=== PATIENT | male | born 1980 | race Caucasian/White ===

== ENCOUNTER 2018-05-25 06:58 | Day surgery (SDC) | payer OTHER ==
[~2018-05-25] VITALS: Ht 167.6 cm; Wt 73.8 kg
[~2018-05-25 06:58] MED LIST: ACET-784 PO; AMPICILLIN SODIUM 1 GM/VIAL ONE; ATOR10TA84 PO; CARB200T6 PO; DOXY100C PO; DSS100 PO; FOLI1 PO; GEMF600T3 PO; GUAI-966 PO; LITH300C3 PO; LORA10TA7 PO; MOM30 PO; MULT-1203 PO; P-EP-31 PO; PSYL575P22 PO; RINGERS SOLUTION,LACTATED 1,000 ML IV ONE; RISP.5 PO; RISP1 PO; RISP2 PO; [UNRECOGNIZED DRUG - OTHER] PO
[2018-05-25] MEDS ORDERED: LIDOCAINE HCL/PF 2% 5 ML VIAL IM ONE (06:59)
[2018-05-25] MEDS ORDERED: METOCLOPRAMIDE HCL 5 MG/ML 2 ML VIAL IVP ONE (06:59)
[2018-05-25] MEDS ORDERED: MIDAZOLAM HCL 2 MG/2 ML VIAL IVP ONE (06:59)
[2018-05-25] MEDS ORDERED: SUCCINYLCHOLINE CHLORIDE 20 MG/ML 10 ML VIAL IVP ONE (06:59)
[2018-05-25] MEDS ORDERED: GLYCOPYRROLATE 0.2 MG/ML VIAL IM ONE (06:59)
[2018-05-25] MEDS ORDERED: DEXAMETHASONE SOD PHOS 4 MG/ML VIAL IVP ONE (06:59)
[2018-05-25] MEDS ORDERED: PROPOFOL 1% 20 ML VIAL IVP ONE (06:59)
[2018-05-25] MEDS ORDERED: PHENYLEPHRINE HCL 1% 15 ML NASAL SPRAY NASAL ONE (06:59)
[2018-05-25] MEDS ORDERED: RINGERS SOLUTION,LACTATED 1,000 ML IV ONE ×2 (07:00→11:00)
[2018-05-25] MEDS ORDERED: AMPICILLIN SODIUM 1 GM/VIAL ONE (07:53)
[2018-05-25] MEDS ORDERED: KETAMINE HCL 50 MG/ML 10 ML VIAL ONE (08:09)
[2018-05-25] MEDS ORDERED: MIDAZOLAM HCL 5 MG/ML VIAL ONE (08:09)
== END 2018-05-25 12:15 | disposition home or self-care (01) ==
LOC: SURGERY 06:58 → EDSEX 08:30 → SURGERY 12:15
PROVIDERS: ATTEND Dentist General Practice
DX: K05.30 Chronic periodontitis, unspecified (principal); E78.5 Hyperlipidemia, unspecified; H54.8 Legal blindness, as defined in USA; F31.9 Bipolar disorder, unspecified; F41.8 Other specified anxiety disorders; F63.81 Intermittent explosive disorder; Z79.891 Long term (current) use of opiate analgesic; Z79.2 Long term (current) use of antibiotics; Z79.899 Other long term (current) drug therapy; Z88.8 Allergy status to other drugs, medicaments and biological substances
CPT/HCPCS: 41899; J0290; J0330; J1100; J2250 ×2; J2704; J2765; J3490 ×3; J7120

== ENCOUNTER 2019-11-15 06:40 | Day surgery (SDC) | payer OTHER, MEDICAID ==
[~2019-11-15] VITALS: Ht 167.6 cm; Wt 170.6 kg
[~2019-11-15 06:40] MED LIST changes: -AMPICILLIN SODIUM 1 GM/VIAL ONE; +CARI3CAP PO; +CHLO4TAB96 PO; -GEMF600T3 PO; +GEMF600T5 PO; +GUAI-1372 PO; +MELA5TAB3 PO; -[UNRECOGNIZED DRUG - OTHER] PO
[2019-11-15] MEDS ORDERED: AMPICILLIN SODIUM 1 GM/VIAL ONE (06:54)
[2019-11-15] MEDS ORDERED: SODIUM CHLORIDE 0.9% 100 ML ONE (06:54)
[2019-11-15 07:15] LABS: BASOPHILS % (AUTO) 0.6 % (0.0-2.0); EOSINOPHILS % (AUTO) 2.4 % (1.0-6.0); HEMATOCRIT 35.9 % (41-53); HEMOGLOBIN 12.5 g/dL (13.5-17.5); LYMPHOCYTES # (AUTO) 1.9 K/uL (1.0-4.8); LYMPHOCYTES % (AUTO) 36.3 % (22.0-44.0); MEAN CORPUSCULAR HEMOGLOBIN 31.7 pg (26.0-34.0); MEAN CORPUSCULAR HGB CONC 34.7 G/dL (31.0-37.0); MEAN CORPUSCULAR VOLUME 91 fL (80-100); MONOCYTES # (AUTO) 0.5 K/uL (0.1-1.0); MONOCYTES % (AUTO) 10.6 % (2.0-9.0); NEUTROPHILS # (AUTO) 2.6 K/uL (1.8-7.7); NEUTROPHILS % (AUTO) 50.1 % (40.0-70.0); PLATELET COUNT (AUTO) 323 K/uL (150-450); RED BLOOD CELL COUNT(AUTO) 3.94 MIL/uL (4.50-5.90); RED CELL DISTRIBUTION WIDTH 12.8 % (11.5-14.5)
[2019-11-15 07:26] LABS: ANION GAP 8 mmol/L (8-16); CALCIUM, TOTAL 9.3 mg/dL (8.8-10.5); CARBON DIOXIDE 26 mmol/L (22-29); CHLORIDE 108 mmol/L (98-107); CREATININE 1.14 mg/dL (0.60-1.30); GLOMERULAR FILTR. RATE CALC > 60 mL/min (>60); GLUCOSE,RANDOM 92 mg/dL (70-110); POTASSIUM 4.2 mmol/L (3.5-5.1); SODIUM SERUM 142 mmol/L (136-145); UREA NITROGEN, BLOOD 20 mg/dL (7-18)
[2019-11-15 07:32] LABS: ALANINE AMINOTRANSFERASE 16 U/L (12-78); ALBUMIN 4.2 g/dL (3.4-5.0); ALKALINE PHOSPHATASE 105 U/L (46-116); ASPARTATE AMINOTRANSFERASE 20 U/L (15-37); BILIRUBIN,TOTAL 0.2 mg/dL (0.1-1.0); INR 1.1 (0.9-1.1); PROTHROMBIN TIME 11.2 SEC (9.4-11.6); TOTAL PROTEIN, SERUM 7.4 g/dL (6.4-8.2)
[2019-11-15] MEDS ORDERED: ROCURONIUM BROMIDE 10 MG/ML 5 ML VIAL IVP ONE (12:00)
[2019-11-15] MEDS ORDERED: PROPOFOL 1% 20 ML VIAL IVP ONE (12:00)
[2019-11-15] MEDS ORDERED: FentaNYL CITRATE-PF 100 MCG/2 ML VIAL IVP ONE (12:00)
[2019-11-15] MEDS ORDERED: LIDOCAINE/PF 2% 5 ML SYRINGE IVP ONE (12:00)
[2019-11-15] MEDS ORDERED: MIDAZOLAM HCL 2 MG/2 ML VIAL IVP ONE (12:00)
== END 2019-11-15 14:05 | disposition home or self-care (01) ==
LOC: SURGERY 06:40
PROVIDERS: ATTEND Dentist General Practice
DX: K02.9 Dental caries, unspecified (principal); K05.5 Other periodontal diseases; E78.5 Hyperlipidemia, unspecified; G40.909 Epilepsy, unspecified, not intractable, without status epilepticus; F41.9 Anxiety disorder, unspecified; K21.9 Gastro-esophageal reflux disease without esophagitis; M81.0 Age-related osteoporosis without current pathological fracture; G80.9 Cerebral palsy, unspecified; Z88.8 Allergy status to other drugs, medicaments and biological substances; Z79.899 Other long term (current) drug therapy; Z79.01 Long term (current) use of anticoagulants
CPT/HCPCS: 36415; 41899; 71045; 80053; 85025; 85610; 85730; 93005; J0290; J2250; J2704; J3010; J3490 ×2; J7050; J7120

== ENCOUNTER 2021-06-04 06:01 | Day surgery (SDC) | payer OTHER, MEDICAID ==
[~2021-06-04] VITALS: Ht 167.6 cm; Wt 70.5 kg
[~2021-06-04 06:01] MED LIST changes: +FOLI-130 PO; -FOLI1 PO; -GEMF600T5 PO; +GEMF600T90 PO; -RISP.5 PO; +RISP0.5T39 PO; -RISP1 PO; +RISP1TAB48 PO; -RISP2 PO; +RISP2TAB45 PO
[2021-06-04] MEDS ORDERED: ONDANSETRON HCL 4 MG/2 ML VIAL IVP ONE (06:02)
[2021-06-04] MEDS ORDERED: PROPOFOL 1% 20 ML VIAL IVP ONE (06:02)
[2021-06-04] MEDS ORDERED: FentaNYL CITRATE PF 100 MCG/2 ML VIAL IVP ONE (06:02)
[2021-06-04] MEDS ORDERED: MIDAZOLAM HCL 2 MG/2 ML VIAL IVP ONE (06:02)
[2021-06-04] MEDS ORDERED: LIDOCAINE/PF 2% 5 ML VIAL IM ONE (06:02)
[2021-06-04 06:34] LABS: COVID AG,FIA SOURCE NASOPHARYNGEAL
[2021-06-04] MEDS ORDERED: AMPICILLIN SODIUM 1 GM/VIAL ONE (07:34)
[2021-06-04] MEDS ORDERED: SODIUM CHLORIDE 0.9% 100 ML ONE (07:39)
[2021-06-04 07:45] LABS: BASOPHILS % (AUTO) 0.7 % (0.0-2.0); HEMATOCRIT 34.7 % (41-53); HEMOGLOBIN 11.8 g/dL (13.5-17.5); LYMPHOCYTES # (AUTO) 1.6 K/uL (1.0-4.8); LYMPHOCYTES % (AUTO) 27.8 % (22.0-44.0); MEAN CORPUSCULAR HEMOGLOBIN 31.4 pg (26.0-34.0); MEAN CORPUSCULAR HGB CONC 33.9 G/dL (31.0-37.0); MEAN CORPUSCULAR VOLUME 93 fL (80-100); MONOCYTES # (AUTO) 0.5 K/uL (0.1-1.0); MONOCYTES % (AUTO) 8.5 % (2.0-9.0); NEUTROPHILS # (AUTO) 3.5 K/uL (1.8-7.7); PLATELET COUNT (AUTO) 343 K/uL (150-450); RED BLOOD CELL COUNT(AUTO) 3.75 MIL/uL (4.50-5.90); RED CELL DISTRIBUTION WIDTH 12.8 % (11.5-14.5)
[2021-06-04 07:52] LABS: ANION GAP 8 mmol/L (8-16); CALCIUM, TOTAL 9.2 mg/dL (8.8-10.5); CARBON DIOXIDE 26 mmol/L (22-29); CHLORIDE 108 mmol/L (98-107); CREATININE 0.94 mg/dL (0.60-1.30); GLOMERULAR FILTR. RATE CALC > 60 mL/min (>60); GLUCOSE,RANDOM 98 mg/dL (70-110); SODIUM SERUM 142 mmol/L (136-145); UREA NITROGEN, BLOOD 18 mg/dL (7-18)
[2021-06-04 07:56] LABS: PROTHROMBIN TIME 10.9 SEC (9.4-11.6)
[2021-06-04 07:58] LABS: ALANINE AMINOTRANSFERASE 22 U/L (12-78); ALKALINE PHOSPHATASE 106 U/L (46-116); ASPARTATE AMINOTRANSFERASE 21 U/L (15-37); BILIRUBIN,TOTAL 0.2 mg/dL (0.1-1.0); TOTAL PROTEIN, SERUM 7.4 g/dL (6.4-8.2)
== END 2021-06-04 12:30 | disposition home or self-care (01) ==
LOC: SURGERY 06:01
PROVIDERS: ATTEND Dentist General Practice
DX: K02.9 Dental caries, unspecified (principal); K05.6 Periodontal disease, unspecified; E78.5 Hyperlipidemia, unspecified; G40.909 Epilepsy, unspecified, not intractable, without status epilepticus; I10 Essential (primary) hypertension; D64.9 Anemia, unspecified; F31.9 Bipolar disorder, unspecified; F41.9 Anxiety disorder, unspecified; K21.9 Gastro-esophageal reflux disease without esophagitis; K59.00 Constipation, unspecified; Z79.899 Other long term (current) drug therapy; Z98.890 Other specified postprocedural states; Z88.8 Allergy status to other drugs, medicaments and biological substances; E78.00 Pure hypercholesterolemia, unspecified; Z79.01 Long term (current) use of anticoagulants
CPT/HCPCS: 36415; 41899; 71045; 80053; 85025; 85610; 85730; 87426; 93005; C9803; J0290; J2250; J2405; J2704; J3010; J3490; J7050; J7120

== ENCOUNTER → 2022-11-25 | Day surgery (SDC) | payer OTHER, MEDICAID ==
[~2022-11-25] VITALS: Ht 167.6 cm; Wt 70.5 kg
[~2022-11-25] MED LIST changes: +AMPICILLIN SODIUM 2 GM/NS 100 ML IV ONE; +ATOR10TA PO; -ATOR10TA84 PO; +BUPIVACAINE 0.25%/EPI 1:200,000/PF 10 ML VIAL ONE; +BUPIVACAINE HCL/PF 0.25% 30 ML VIAL ONE; +FentaNYL CITRATE PF 100 MCG/2 ML VIAL IVP ONE; +GEMF-77 PO; -GEMF600T90 PO; +LIDOCAINE/PF 2% 5 ML VIAL IM ONE; +MAGN-169 PO; -MELA5TAB3 PO; +MELA5TAB40 PO; +MIDAZOLAM HCL 2 MG/2 ML VIAL IVP ONE; -MOM30 PO; +ONDANSETRON HCL 4 MG/2 ML VIAL IVP ONE; -P-EP-31 PO; +PROPOFOL 1% 20 ML VIAL IVP ONE; +ROCURONIUM BROMIDE 10 MG/ML 5 ML VIAL IVP ONE; +SODIUM CHLORIDE 0.9% 1,000 ML IV ONE; +TRIP1TAB14 PO
[2022-11-25 07:22] LABS: COVID AG,FIA SOURCE NASAL SWAB
[2022-11-25 07:33] LABS: BASOPHILS % (AUTO) 0.8 % (0.0-2.0); EOSINOPHILS % (AUTO) 2.9 % (1.0-6.0); HEMOGLOBIN 12.3 g/dL (13.5-17.5); LYMPHOCYTES # (AUTO) 1.7 K/uL (1.0-4.8); LYMPHOCYTES % (AUTO) 33.8 % (22.0-44.0); MEAN CORPUSCULAR HEMOGLOBIN 31.7 pg (26.0-34.0); MEAN CORPUSCULAR HGB CONC 33.3 G/dL (31.0-37.0); MEAN CORPUSCULAR VOLUME 95 fL (80-100); MONOCYTES # (AUTO) 0.5 K/uL (0.1-1.0); MONOCYTES % (AUTO) 9.4 % (2.0-9.0); NEUTROPHILS # (AUTO) 2.6 K/uL (1.8-7.7); NEUTROPHILS % (AUTO) 53.1 % (40.0-70.0); PLATELET COUNT (AUTO) 320 K/uL (150-450); RED CELL DISTRIBUTION WIDTH 13.1 % (11.5-14.5)
[2022-11-25 07:47] LABS: INR 1.1 (0.9-1.1); PROTHROMBIN TIME 11.2 SEC (9.4-11.6)
[2022-11-25 07:49] LABS: ANION GAP 10 mmol/L (8-16); CALCIUM, TOTAL 9.3 mg/dL (8.8-10.5); CARBON DIOXIDE 25 mmol/L (22-29); CHLORIDE 108 mmol/L (98-107); CREATININE 1.09 mg/dL (0.60-1.30); GLUCOSE,RANDOM 96 mg/dL (70-110); POTASSIUM 3.8 mmol/L (3.5-5.1); SODIUM SERUM 143 mmol/L (136-145); UREA NITROGEN, BLOOD 13 mg/dL (7-18)
[2022-11-25 07:53] LABS: GLOMERULAR FILTR. RATE CALC > 60 mL/min (>60)
[2022-11-25 07:55] LABS: ALANINE AMINOTRANSFERASE 17 U/L (12-78); ALBUMIN 4.1 g/dL (3.4-5.0); ALKALINE PHOSPHATASE 106 U/L (46-116); ASPARTATE AMINOTRANSFERASE 18 U/L (15-37); BILIRUBIN,TOTAL 0.2 mg/dL (0.1-1.0); TOTAL PROTEIN, SERUM 7.5 g/dL (6.4-8.2)
== END | disposition still patient (30) ==
LOC: SURGERY 06:57
PROVIDERS: ATTEND Dentist General Practice
DX: K02.9 Dental caries, unspecified (principal); K05.30 Chronic periodontitis, unspecified; E78.5 Hyperlipidemia, unspecified; F31.9 Bipolar disorder, unspecified; G40.909 Epilepsy, unspecified, not intractable, without status epilepticus; F41.9 Anxiety disorder, unspecified; K21.9 Gastro-esophageal reflux disease without esophagitis; K03.6 Deposits [accretions] on teeth; Z79.01 Long term (current) use of anticoagulants; Z79.899 Other long term (current) drug therapy; Z88.8 Allergy status to other drugs, medicaments and biological substances; K59.00 Constipation, unspecified; E78.00 Pure hypercholesterolemia, unspecified; Z98.890 Other specified postprocedural states
CPT/HCPCS: 41899; 71045; 87426; 80053; 85025; 85610; 85730; 36415; 93005; J0290; J3490 ×3; J2704; J3010; J2250; J2405; C9803

== ENCOUNTER 2025-06-13 06:19 | Day surgery (SDC) | payer OTHER ==
[~2025-06-13] VITALS: Ht 167.6 cm; Wt 60.5 kg
[~2025-06-13 06:19] MED LIST changes: +AMLO-258 PO; -AMPICILLIN SODIUM 2 GM/NS 100 ML IV ONE; +BISA-151 PO; -BUPIVACAINE 0.25%/EPI 1:200,000/PF 10 ML VIAL ONE; -BUPIVACAINE HCL/PF 0.25% 30 ML VIAL ONE; +CALA177S6 TP; +CARB-92 PO; -CARB200T6 PO; -CHLO4TAB96 PO; -DSS100 PO; +FERR325T27 PO; +FEXO-353 PO; -FentaNYL CITRATE PF 100 MCG/2 ML VIAL IVP ONE; +GUAI-1217 PO; -GUAI-1372 PO; -GUAI-966 PO; -LIDOCAINE/PF 2% 5 ML VIAL IM ONE; -LORA10TA7 PO; +LORA2TAB18 PO; -MIDAZOLAM HCL 2 MG/2 ML VIAL IVP ONE; -ONDANSETRON HCL 4 MG/2 ML VIAL IVP ONE; +POLY17PO47 PO; -PROPOFOL 1% 20 ML VIAL IVP ONE; -PSYL575P22 PO; -RINGERS SOLUTION,LACTATED 1,000 ML IV ONE; -RISP0.5T39 PO; +RISP1SOL11 PO; -RISP2TAB45 PO; -ROCURONIUM BROMIDE 10 MG/ML 5 ML VIAL IVP ONE; -SODIUM CHLORIDE 0.9% 1,000 ML IV ONE; -TRIP1TAB14 PO
[2025-06-13 07:09] LABS: PLATELET COUNT (AUTO) 305 K/uL (150-450); RED BLOOD CELL COUNT(AUTO) 3.64 MIL/uL (4.50-5.90); RED CELL DISTRIBUTION WIDTH 13.8 % (11.5-14.5); WHITE BLOOD COUNT (AUTO) 4.8 K/uL (4.5-11.0)
[2025-06-13 07:21] LABS: CALCIUM, TOTAL 9.5 mg/dL (8.8-10.5); CREATININE 1.18 mg/dL (0.60-1.30); GLOMERULAR FILTR. RATE CALC > 60 mL/min (>60); GLUCOSE,RANDOM 95 mg/dL (70-110); SODIUM SERUM 143 mmol/L (136-145); UREA NITROGEN, BLOOD 21 mg/dL (7-18)
[2025-06-13 07:26] LABS: ASPARTATE AMINOTRANSFERASE 16 U/L (15-37); TOTAL PROTEIN, SERUM 6.9 g/dL (6.4-8.2)
[2025-06-13] MEDS ORDERED: AMPICILLIN SODIUM 2 GM/NS 100 ML IV ONE (07:30)
[2025-06-13] MEDS ORDERED: RINGERS SOLUTION,LACTATED 1,000 ML IV ONE (07:34)
[2025-06-13] MEDS ORDERED: CYAN-42 IM (09:45)
[2025-06-13] MEDS ORDERED: DOXY-354 PO (09:45)
[2025-06-13] MEDS ORDERED: ATOR20TA PO (09:45)
[2025-06-13] MEDS ORDERED: CARB-92 PO (09:45)
[2025-06-13] MEDS ORDERED: RISP3TAB77 PO (09:45)
[2025-06-13] MEDS ORDERED: RISP-32 PO (09:45)
[2025-06-13] MEDS ORDERED: FLUT16SP NASAL (09:45)
[2025-06-13] MEDS ORDERED: OMEG100014 PO (09:45)
[2025-06-13] MEDS ORDERED: AMLO-257 PO (09:45)
[2025-06-13] MEDS ORDERED: DOCU-385 PO (09:45)
[2025-06-13] MEDS: RINGERS SOLUTION,LACTATED 1,000 ML IV ONE (10:16)
== END 2025-06-13 13:35 | disposition home or self-care (01) ==
LOC: SDS 06:19
PROVIDERS: ATTEND Dentist General Practice
DX: K02.9 Dental caries, unspecified (principal); K05.30 Chronic periodontitis, unspecified; E78.5 Hyperlipidemia, unspecified; E87.8 Other disorders of electrolyte and fluid balance, not elsewhere classified; F41.9 Anxiety disorder, unspecified; E78.00 Pure hypercholesterolemia, unspecified; F31.9 Bipolar disorder, unspecified; G40.909 Epilepsy, unspecified, not intractable, without status epilepticus; G80.9 Cerebral palsy, unspecified; K21.9 Gastro-esophageal reflux disease without esophagitis; K59.00 Constipation, unspecified; Z79.01 Long term (current) use of anticoagulants; Z79.899 Other long term (current) drug therapy; Z88.8 Allergy status to other drugs, medicaments and biological substances; Z98.890 Other specified postprocedural states
CPT/HCPCS: 41899; 71045; 80053; 85025; 85610; 85730; 36415; 93005; J0290; J7120